=== PATIENT | female | born 2000 | race African-American/Black ===

== ENCOUNTER 2019-08-29 09:46 | Emergency (ER) | payer OTHER ==
[2019-08-29 10:11] VITALS: BP 121/50; PULSE 60; TEMP 98; BMI 26.5
--- NOTE | 2019-08-29 11:33 | PDOC ---
History of Present Illness - General Chief Complaint: Edema Stated Complaint: SWOLLEN LIPS Time Seen by Provider: 08/29/19 11:15 History Source: Patient - History of Present Illness Initial Comments: 08/29/19 11:25 19 year old female with sore to upper lip since yesterday. denies pain to the sight. unsure of bite no pmhx Past History - Past Medical History Allergies/Adverse Reactions: Allergies Allergy/AdvReac Type Severity Reaction Status Date / Time No Known Allergies Allergy Verified 08/29/19 10:11 Home Medications: Ambulatory Orders Acyclovir/Hydrocortisone [Xerese 5%-1% Cream] 1 applic TP 5XD #1 cream..g. 08/29 COPD: No - Psycho Social/Smoking Cessation Hx Smoking History: Never smoked Information on smoking cessation initiated: No Hx Alcohol Use: No Drug/Substance Use Hx: No Review of Systems - Review of Systems Able to Perform ROS?: Yes Is the patient limited [place] proficient: No HEENTM: Yes: Other (lip swelling) *Physical Exam - Vital Signs Last Vital Signs Temp Pulse Resp BP Pulse Ox 98 F 60 18 121/50 L 100 08/29/19 10:10 08/29/19 10:10 08/29/19 10:10 08/29/19 10:10 08/29/19 10:10 - Physical Exam General Appearance: Yes: Appropriately Dressed HEENT: positive: Other (upper lip swelling with canker sore upper lip) Discharge - Discharge Information Problems reviewed: Yes Clinical Impression/Diagnosis: Canker sore Disposition: HOME - Additional Discharge Information Prescriptions: Acyclovir/Hydrocortisone [Xerese 5%-1% Cream] 1 applic TP 5XD #1 cream..g. - Follow up/Referral Referrals: Jose Mantilla MD [Primary Care Provider] - - Patient Discharge Instructions Patient Printed Discharge Instructions: Cold Sores - Post Discharge Activity
== END 2019-08-29 12:20 | disposition home or self-care (01) ==
LOC: JERFT 09:46
DX: K12.0 Recurrent oral aphthae (principal)
CPT/HCPCS: 99281-25